=== PATIENT | female | born 1945 | race Asian ===

== ENCOUNTER 2017-01-26 09:38 | Outpatient (CLI) | payer OTHER ==
[~2017-01-26 09:38] MED LIST: BAYER CHEWABLE81 MG PO; DIAZ5TAB20 PO; EQ OMEPRAZOLE20 MG PO; FORTAMET500 MG PO; GABA300C2 PO; GARLIC OIL1000 M1 PO; HYDR25TA60 PO; IBUP-97 PO; LEVO0.0218 PO; MICARDIS40 MG PO; OMEPRAZOLE20 M1 PO; OXYC10TA3 PO
[2017-01-26 10:40] LABS: PLATELET COUNT 223 K/uL (152-353)
[2017-01-26 11:10] LABS: POTASSIUM 3.6 mmol/L (3.6-5.2)
== END 2017-01-26 10:38 | disposition home or self-care (01) ==
LOC: LABW 09:38
PROVIDERS: Family Medicine
DX: I12.9 Hypertensive chronic kidney disease with stage 1 through stage 4 chronic kidney disease, or unspecified chronic kidney disease (principal); M54.2 Cervicalgia; N18.3 Chronic kidney disease, stage 3 (moderate); E11.9 Type 2 diabetes mellitus without complications; E03.8 Other specified hypothyroidism; K21.9 Gastro-esophageal reflux disease without esophagitis
CPT/HCPCS: 36415; 80053; 80061; 81000; 82043; 82306; 82570; 83036; 83735; 84439; 84443; 84550; 85027

== ENCOUNTER 2017-06-22 13:25 | Outpatient (CLI) | payer OTHER ==
[2017-06-22 14:24] LABS: POTASSIUM 3.8 mmol/L (3.6-5.2)
[2017-06-22 14:47] LABS: PLATELET COUNT 249 K/uL (152-353)
== END 2017-06-22 20:07 | disposition home or self-care (01) ==
LOC: LAB 13:25
PROVIDERS: Family Medicine
DX: I10 Essential (primary) hypertension (principal); R23.8 Other skin changes
CPT/HCPCS: 80053; 82306; 83735; 84439; 84443; 85027

== ENCOUNTER 2017-08-06 08:42 | Outpatient (CLI) | payer OTHER | END 2017-08-06 19:01 | disposition home or self-care (01) | LOC: MAMMO 08:42 | DX: Z12.31 Encounter for screening mammogram for malignant neoplasm of breast (principal) ==

== ENCOUNTER 2017-09-07 11:00 | Emergency (ER) | payer OTHER ==
[~2017-09-07] VITALS: Ht 157.5 cm; Wt 84.4 kg
[2017-09-07 12:25] LABS: PLATELET COUNT 256 K/uL (152-353)
[2017-09-07 12:38] LABS: POTASSIUM 3.6 mmol/L (3.6-5.2)
[2017-09-07 14:48] VITALS: BP 153/71; TEMP 98
== END 2017-09-07 14:48 | disposition home or self-care (01) ==
LOC: ED 11:00
PROVIDERS: Emergency Medicine
DX: R42 Dizziness and giddiness (principal); R79.89 Other specified abnormal findings of blood chemistry; R00.1 Bradycardia, unspecified
CPT/HCPCS: 36415; 80053; 81000; 82550; 84484; 85027; 93005; 99283

== ENCOUNTER 2017-09-19 12:51 | Outpatient (CLI) | payer OTHER | END 2017-09-19 19:00 | disposition home or self-care (01) | LOC: CT 12:51 | DX: R42 Dizziness and giddiness (principal); R51 Headache; R06.02 Shortness of breath; I10 Essential (primary) hypertension ==

== ENCOUNTER 2018-05-13 10:08 | Outpatient (CLI) | payer OTHER | END 2018-05-13 19:44 | disposition home or self-care (01) | LOC: MRI 10:08 | DX: R51 Headache (principal) | CPT/HCPCS: 36415; 82565; 84520 ==

== ENCOUNTER 2018-06-14 09:36 | Outpatient (CLI) | payer OTHER ==
[2018-06-14 10:11] LABS: PLATELET COUNT 247 K/uL (152-353)
== END 2018-06-14 19:44 | disposition home or self-care (01) ==
LOC: LABW 09:36
PROVIDERS: Internal Medicine Nephrology
DX: N18.3 Chronic kidney disease, stage 3 (moderate) (principal); E11.9 Type 2 diabetes mellitus without complications; I10 Essential (primary) hypertension; E56.9 Vitamin deficiency, unspecified; E03.9 Hypothyroidism, unspecified
CPT/HCPCS: 36415; 80053; 82306; 82575; 83036; 83970; 84100; 84156; 84165; 84443; 85027; 86039

== ENCOUNTER 2018-07-05 09:11 | Outpatient (CLI) | payer OTHER | END 2018-07-05 22:41 | disposition home or self-care (01) | LOC: US 09:11 | DX: N18.3 Chronic kidney disease, stage 3 (moderate) (principal); E11.9 Type 2 diabetes mellitus without complications; I10 Essential (primary) hypertension; E56.9 Vitamin deficiency, unspecified; E03.9 Hypothyroidism, unspecified ==

== ENCOUNTER 2018-10-25 09:17 | Outpatient (CLI) | payer OTHER | END 2018-10-25 20:49 | disposition home or self-care (01) | LOC: MAMMO 09:17 | DX: Z13.820 Encounter for screening for osteoporosis (principal); Z78.0 Asymptomatic menopausal state; Z12.31 Encounter for screening mammogram for malignant neoplasm of breast ==

== ENCOUNTER 2018-12-25 09:44 | Outpatient (CLI) | payer OTHER ==
[2018-12-25 11:05] LABS: PLATELET COUNT 204 K/uL (152-353)
[2018-12-25 11:25] LABS: POTASSIUM 3.9 mmol/L (3.6-5.2)
== END 2018-12-25 23:59 | disposition home or self-care (01) ==
LOC: LABW 09:44
PROVIDERS: Family Medicine
DX: N18.3 Chronic kidney disease, stage 3 (moderate) (principal); I10 Essential (primary) hypertension; M54.5 Low back pain; E03.9 Hypothyroidism, unspecified; E11.610 Type 2 diabetes mellitus with diabetic neuropathic arthropathy
CPT/HCPCS: 36415; 80053; 80061; 81000; 82306; 83036; 83735; 84439; 84443; 84550; 85027

== ENCOUNTER 2019-01-16 09:33 | Outpatient (CLI) | payer OTHER ==
[2019-01-16 10:13] LABS: POTASSIUM 4.2 mmol/L (3.6-5.2)
[2019-01-16 10:32] LABS: PLATELET COUNT 234 K/uL (152-353)
== END 2019-01-16 19:53 | disposition home or self-care (01) ==
LOC: LABW 09:33
DX: R06.02 Shortness of breath (principal); N18.3 Chronic kidney disease, stage 3 (moderate); I10 Essential (primary) hypertension; E11.9 Type 2 diabetes mellitus without complications; E56.9 Vitamin deficiency, unspecified; E03.9 Hypothyroidism, unspecified
CPT/HCPCS: 36415; 80053; 82306; 82550; 83735; 83880; 83970; 84100; 84439; 84443; 85027

== ENCOUNTER 2019-03-03 16:13 | Outpatient (CLI) | payer OTHER | END 2019-03-03 19:44 | disposition home or self-care (01) | LOC: US 16:13 | DX: R42 Dizziness and giddiness (principal) ==

== ENCOUNTER 2019-05-28 11:18 | Outpatient (CLI) | payer OTHER ==
[2019-05-28 11:58] LABS: PLATELET COUNT 259 K/uL (152-353)
[2019-05-28 12:34] LABS: POTASSIUM 2.8 mmol/L (3.6-5.2)
== END 2019-05-28 23:46 | disposition home or self-care (01) ==
LOC: LABW 11:18
PROVIDERS: Family Medicine
DX: R10.84 Generalized abdominal pain (principal); R05 Cough
CPT/HCPCS: 36415; 80053; 81000; 85027

== ENCOUNTER 2019-06-13 09:09 | Outpatient (CLI) | payer OTHER ==
[2019-06-13 10:23] LABS: PLATELET COUNT 280 K/uL (152-353)
[2019-06-13 10:40] LABS: POTASSIUM 3.5 mmol/L (3.6-5.2); SODIUM 145 mmol/L (136-145)
== END 2019-06-13 21:39 | disposition home or self-care (01) ==
LOC: RAD 09:09
PROVIDERS: Family Medicine
DX: S39.92XA Unspecified injury of lower back, initial encounter (principal); M25.551 Pain in right hip; M25.561 Pain in right knee; M79.671 Pain in right foot; R55 Syncope and collapse; I10 Essential (primary) hypertension
CPT/HCPCS: 36415; 80053; 82550; 82553; 84439; 84443; 84484; 85027; 93005

== ENCOUNTER 2019-06-18 10:01 | Emergency (ER) | payer OTHER ==
[~2019-06-18] VITALS: Ht 152.4 cm; Wt 89.4 kg
[2019-06-18 11:30] VITALS: BP 164/65; TEMP 97.5
== END 2019-06-18 11:30 | disposition home or self-care (01) ==
LOC: ED 10:01
DX: S93.692A Other sprain of left foot, initial encounter (principal); S93.492A Sprain of other ligament of left ankle, initial encounter; W18.39XA Other fall on same level, initial encounter; Y92.89 Other specified places as the place of occurrence of the external cause
CPT/HCPCS: 96372; 99282; 99283; J1885

== ENCOUNTER 2019-07-16 10:37 | Outpatient (CLI) | payer OTHER ==
[2019-07-16 11:03] LABS: PLATELET COUNT 276 K/uL (152-353)
[2019-07-16 11:21] LABS: POTASSIUM 3.5 mmol/L (3.6-5.2)
== END 2019-07-16 21:36 | disposition home or self-care (01) ==
LOC: LABW 10:37
PROVIDERS: Internal Medicine
DX: I12.9 Hypertensive chronic kidney disease with stage 1 through stage 4 chronic kidney disease, or unspecified chronic kidney disease (principal); N18.3 Chronic kidney disease, stage 3 (moderate); E11.9 Type 2 diabetes mellitus without complications; M10.9 Gout, unspecified; E03.8 Other specified hypothyroidism; K21.9 Gastro-esophageal reflux disease without esophagitis
CPT/HCPCS: 36415; 80053; 81000; 82570; 83735; 84100; 84155; 84550; 85027

== ENCOUNTER 2019-07-22 09:00 | Outpatient (CLI) | payer OTHER | END 2019-07-22 20:15 | disposition home or self-care (01) | LOC: MRI 09:00 | DX: M54.5 Low back pain (principal); M51.37 Other intervertebral disc degeneration, lumbosacral region; M48.07 Spinal stenosis, lumbosacral region; R29.898 Other symptoms and signs involving the musculoskeletal system; M54.17 Radiculopathy, lumbosacral region ==

== ENCOUNTER 2019-09-08 09:54 | Outpatient (CLI) | payer OTHER | END 2019-09-08 20:22 | disposition home or self-care (01) | LOC: US 09:54 | DX: I12.9 Hypertensive chronic kidney disease with stage 1 through stage 4 chronic kidney disease, or unspecified chronic kidney disease (principal); N18.3 Chronic kidney disease, stage 3 (moderate); H93.13 Tinnitus, bilateral; E11.9 Type 2 diabetes mellitus without complications ==

== ENCOUNTER 2019-11-17 09:41 | Outpatient (CLI) | payer OTHER ==
[2019-11-17 10:01] LABS: PLATELET COUNT 201 K/uL (152-353)
[2019-11-17 10:12] LABS: POTASSIUM 4.5 mmol/L (3.6-5.2)
== END 2019-11-17 22:33 | disposition home or self-care (01) ==
LOC: LABW 09:41
PROVIDERS: Internal Medicine
DX: I12.9 Hypertensive chronic kidney disease with stage 1 through stage 4 chronic kidney disease, or unspecified chronic kidney disease (principal); N18.3 Chronic kidney disease, stage 3 (moderate); E11.9 Type 2 diabetes mellitus without complications; M10.9 Gout, unspecified; D63.1 Anemia in chronic kidney disease; E03.8 Other specified hypothyroidism
CPT/HCPCS: 36415; 80053; 81000; 83735; 84100; 84550; 85027

== ENCOUNTER 2019-11-19 21:00 | Emergency (ER) | payer OTHER ==
[~2019-11-19] VITALS: Ht 154.9 cm; Wt 92.1 kg
[2019-11-19 23:31] VITALS: BP 162/78; TEMP 97.6
== END 2019-11-19 23:31 | disposition home or self-care (01) ==
LOC: ED 21:00
DX: S80.811A Abrasion, right lower leg, initial encounter (principal); W45.8XXA Other foreign body or object entering through skin, initial encounter; Y92.89 Other specified places as the place of occurrence of the external cause
CPT/HCPCS: 99282

== ENCOUNTER 2019-12-13 13:49 | Emergency (ER) | payer OTHER ==
[~2019-12-13] VITALS: Ht 154.9 cm; Wt 92.1 kg
[2019-12-13 14:00] VITALS: TEMP 97.5
[2019-12-13 15:15] VITALS: BP 156/84
== END 2019-12-13 15:16 | disposition home or self-care (01) ==
LOC: ED 13:49
DX: M19.012 Primary osteoarthritis, left shoulder (principal); X50.9XXA Other and unspecified overexertion or strenuous movements or postures, initial encounter; Y92.89 Other specified places as the place of occurrence of the external cause
CPT/HCPCS: 99282

== ENCOUNTER 2019-12-16 09:47 | Outpatient (CLI) | payer OTHER | END 2019-12-16 22:20 | disposition home or self-care (01) | LOC: MAMMO 09:47 | DX: Z12.31 Encounter for screening mammogram for malignant neoplasm of breast (principal) ==

== ENCOUNTER 2020-02-23 11:53 | Outpatient (CLI) | payer OTHER ==
[2020-02-23 12:28] LABS: PLATELET COUNT 206 K/uL (152-353)
[2020-02-23 12:49] LABS: POTASSIUM 4.5 mmol/L (3.6-5.2)
== END 2020-02-23 22:57 | disposition home or self-care (01) ==
LOC: LABW 11:53
PROVIDERS: Family Medicine
DX: N95.1 Menopausal and female climacteric states (principal); E11.9 Type 2 diabetes mellitus without complications; N18.3 Chronic kidney disease, stage 3 (moderate); K21.9 Gastro-esophageal reflux disease without esophagitis; I12.9 Hypertensive chronic kidney disease with stage 1 through stage 4 chronic kidney disease, or unspecified chronic kidney disease
CPT/HCPCS: 36415; 80053; 80061; 81000; 82306; 83036; 83735; 84439; 84443; 84550; 85027

== ENCOUNTER 2020-03-15 09:01 | Outpatient (CLI) | payer OTHER ==
[2020-03-15 09:53] LABS: PLATELET COUNT 203 K/uL (152-353)
[2020-03-15 09:59] LABS: POTASSIUM 4.6 mmol/L (3.6-5.2)
== END 2020-03-15 19:25 | disposition home or self-care (01) ==
LOC: LABW 09:01
PROVIDERS: Internal Medicine
DX: I12.9 Hypertensive chronic kidney disease with stage 1 through stage 4 chronic kidney disease, or unspecified chronic kidney disease (principal); N18.3 Chronic kidney disease, stage 3 (moderate); E11.9 Type 2 diabetes mellitus without complications; M10.9 Gout, unspecified; E03.8 Other specified hypothyroidism
CPT/HCPCS: 36415; 80069; 81000; 83735; 84550; 85027

== ENCOUNTER 2020-07-15 11:35 | Outpatient (CLI) | payer OTHER ==
[2020-07-15 12:24] LABS: PLATELET COUNT 185 K/uL (152-353)
[2020-07-15 17:57] LABS: POTASSIUM 4.7 mmol/L (3.6-5.2)
== END 2020-07-15 21:50 | disposition home or self-care (01) ==
LOC: LABW 11:35
PROVIDERS: Internal Medicine
DX: I12.9 Hypertensive chronic kidney disease with stage 1 through stage 4 chronic kidney disease, or unspecified chronic kidney disease (principal); N18.3 Chronic kidney disease, stage 3 (moderate); E11.9 Type 2 diabetes mellitus without complications; M10.9 Gout, unspecified; E03.8 Other specified hypothyroidism
CPT/HCPCS: 36415; 80069; 81000; 82570; 83735; 84155; 85027

== ENCOUNTER 2020-09-14 10:22 | Outpatient (CLI) | payer OTHER ==
[2020-09-14 10:59] LABS: POTASSIUM 4.3 mmol/L (3.6-5.2)
[2020-09-14 11:42] LABS: PLATELET COUNT 198 K/uL (152-353)
== END 2020-09-14 23:32 | disposition home or self-care (01) ==
LOC: LABW 10:22
PROVIDERS: Internal Medicine
DX: I12.9 Hypertensive chronic kidney disease with stage 1 through stage 4 chronic kidney disease, or unspecified chronic kidney disease (principal); N18.4 Chronic kidney disease, stage 4 (severe); E11.9 Type 2 diabetes mellitus without complications; M10.9 Gout, unspecified; E03.8 Other specified hypothyroidism
CPT/HCPCS: 36415; 80069; 81000; 83735; 84550; 85027

== ENCOUNTER 2020-09-15 08:53 | Outpatient (CLI) | payer OTHER | END 2020-09-15 21:43 | disposition home or self-care (01) | LOC: LAB 08:53 | DX: Z20.828 Contact with and (suspected) exposure to other viral communicable diseases (principal) | CPT/HCPCS: 87635; G2023; U0003 ==

== ENCOUNTER 2020-10-18 11:43 | Outpatient (CLI) | payer OTHER | END 2020-10-18 19:46 | disposition home or self-care (01) | LOC: LABW 11:43 | PROVIDERS: ATTEND Family Medicine | DX: M06.8A Other specified rheumatoid arthritis, other specified site (principal); M54.89 Other dorsalgia; M25.561 Pain in right knee; M25.519 Pain in unspecified shoulder | CPT/HCPCS: 36415; 86038; 86200; 86430 ==

== ENCOUNTER 2020-11-15 13:38 | Outpatient (CLI) | payer OTHER | END 2020-11-15 21:12 | disposition home or self-care (01) | LOC: LAB 13:38 | PROVIDERS: ATTEND Family Medicine | DX: G89.4 Chronic pain syndrome (principal); J34.89 Other specified disorders of nose and nasal sinuses; R42 Dizziness and giddiness; R05 Cough; Z11.59 Encounter for screening for other viral diseases | CPT/HCPCS: 87635; G2023; U0003 ==

== ENCOUNTER 2020-12-07 15:36 | Outpatient (CLI) | payer OTHER | END 2020-12-07 21:38 | disposition home or self-care (01) | LOC: RAD 15:36 | PROVIDERS: ATTEND Family Medicine | DX: M25.561 Pain in right knee (principal); M79.604 Pain in right leg ==

== ENCOUNTER 2021-01-12 10:29 | Outpatient (CLI) | payer OTHER ==
[2021-01-12 11:18] LABS: PLATELET COUNT 269 K/uL (152-353)
[2021-01-12 11:56] LABS: POTASSIUM 4.7 mmol/L (3.6-5.2)
== END 2021-01-12 21:08 | disposition home or self-care (01) ==
LOC: LABW 10:29
PROVIDERS: ATTEND Internal Medicine
DX: I12.9 Hypertensive chronic kidney disease with stage 1 through stage 4 chronic kidney disease, or unspecified chronic kidney disease (principal); N18.30 Chronic kidney disease, stage 3 unspecified; E11.9 Type 2 diabetes mellitus without complications; M10.9 Gout, unspecified; E03.8 Other specified hypothyroidism; K21.9 Gastro-esophageal reflux disease without esophagitis
CPT/HCPCS: 36415; 80069; 81000; 82306; 82570; 82728; 83540; 83550; 83735; 83970; 84155; 85027

== ENCOUNTER 2021-01-13 10:57 | Outpatient (CLI) | payer OTHER | END 2021-01-13 21:51 | disposition home or self-care (01) | LOC: MAMMO 10:57 | PROVIDERS: ATTEND Pediatrics | DX: Z12.31 Encounter for screening mammogram for malignant neoplasm of breast (principal) ==

== ENCOUNTER 2021-06-06 10:18 | Outpatient (CLI) | payer OTHER ==
[2021-06-06 10:58] LABS: PLATELET COUNT 204 K/uL (152-353)
== END 2021-06-06 21:00 | disposition home or self-care (01) ==
LOC: LABW 10:18
PROVIDERS: ATTEND Internal Medicine
DX: I12.9 Hypertensive chronic kidney disease with stage 1 through stage 4 chronic kidney disease, or unspecified chronic kidney disease (principal); N18.30 Chronic kidney disease, stage 3 unspecified; E11.9 Type 2 diabetes mellitus without complications; M10.9 Gout, unspecified; D63.1 Anemia in chronic kidney disease; E03.8 Other specified hypothyroidism; K21.9 Gastro-esophageal reflux disease without esophagitis; E21.2 Other hyperparathyroidism; E56.9 Vitamin deficiency, unspecified
CPT/HCPCS: 36415; 80069; 81000; 82306; 82570; 82728; 83540; 83550; 84155; 84550; 85027

== ENCOUNTER 2021-07-29 11:49 | Outpatient (CLI) | payer OTHER | END 2021-07-29 19:19 | disposition home or self-care (01) | LOC: RAD 11:49 → EDBD 11:49 → RAD 19:19 | PROVIDERS: ATTEND Family Medicine | DX: M54.2 Cervicalgia (principal); Z20.822 Contact with and (suspected) exposure to COVID-19; M54.89 Other dorsalgia; H66.90 Otitis media, unspecified, unspecified ear | CPT/HCPCS: 87635; G2023; U0003 ==

== ENCOUNTER 2021-10-18 09:42 | Outpatient (CLI) | payer OTHER ==
[2021-10-18 10:09] LABS: PLATELET COUNT 205 K/uL (152-353)
[2021-10-18 10:31] LABS: POTASSIUM 3.7 mmol/L (3.6-5.2)
== END 2021-10-18 18:57 | disposition home or self-care (01) ==
LOC: LABW 09:42
PROVIDERS: ATTEND Internal Medicine
DX: I12.9 Hypertensive chronic kidney disease with stage 1 through stage 4 chronic kidney disease, or unspecified chronic kidney disease (principal); N18.30 Chronic kidney disease, stage 3 unspecified; E11.9 Type 2 diabetes mellitus without complications; M10.9 Gout, unspecified; D63.1 Anemia in chronic kidney disease; E03.8 Other specified hypothyroidism; K21.9 Gastro-esophageal reflux disease without esophagitis
CPT/HCPCS: 36415; 80069; 81000; 82570; 82728; 83540; 83550; 83735; 84155; 84550; 85027

== ENCOUNTER 2021-10-29 11:30 | Outpatient (CLI) | payer OTHER | END 2021-10-29 18:58 | disposition home or self-care (01) | LOC: RAD 11:30 | PROVIDERS: ATTEND Family Medicine | DX: M25.542 Pain in joints of left hand (principal); M79.642 Pain in left hand ==

== ENCOUNTER 2022-01-30 13:28 | Outpatient (CLI) | payer OTHER | END 2022-01-30 19:13 | disposition home or self-care (01) | LOC: MAMMO 13:28 | PROVIDERS: ATTEND Family Medicine | DX: Z00.00 Encounter for general adult medical examination without abnormal findings (principal); Z12.31 Encounter for screening mammogram for malignant neoplasm of breast; Z13.820 Encounter for screening for osteoporosis; N95.8 Other specified menopausal and perimenopausal disorders ==

== ENCOUNTER 2022-02-01 11:49 | Outpatient (CLI) | payer OTHER ==
[2022-02-01 13:40] LABS: POTASSIUM 4.3 mmol/L (3.6-5.2)
== END 2022-02-01 18:53 | disposition home or self-care (01) ==
LOC: LABW 11:49
PROVIDERS: ATTEND Family Medicine
DX: M79.604 Pain in right leg (principal); R60.0 Localized edema; K21.9 Gastro-esophageal reflux disease without esophagitis; E03.8 Other specified hypothyroidism
CPT/HCPCS: 36415; 80053; 83735; 84439; 84443

== ENCOUNTER 2022-02-02 09:26 | Outpatient (CLI) | payer OTHER | END 2022-02-02 19:58 | disposition home or self-care (01) | LOC: US 09:26 | PROVIDERS: ATTEND Family Medicine | DX: R60.0 Localized edema (principal); M79.604 Pain in right leg ==

== ENCOUNTER 2022-02-13 14:27 | Outpatient (CLI) | payer OTHER ==
[2022-02-13 14:48] LABS: PLATELET COUNT 215 K/uL (152-353)
[2022-02-13 15:00] LABS: POTASSIUM 4.1 mmol/L (3.6-5.2)
== END 2022-02-13 19:25 | disposition home or self-care (01) ==
LOC: LABW 14:27
PROVIDERS: ATTEND Internal Medicine
DX: I12.9 Hypertensive chronic kidney disease with stage 1 through stage 4 chronic kidney disease, or unspecified chronic kidney disease (principal); N18.30 Chronic kidney disease, stage 3 unspecified; E11.9 Type 2 diabetes mellitus without complications; M10.9 Gout, unspecified; D63.1 Anemia in chronic kidney disease; E03.8 Other specified hypothyroidism; K21.9 Gastro-esophageal reflux disease without esophagitis
CPT/HCPCS: 36415; 80069; 81000; 83735; 84550; 85027

== ENCOUNTER 2022-04-27 12:22 | Outpatient (CLI) | payer OTHER | END 2022-04-27 19:17 | disposition home or self-care (01) | LOC: LAB 12:22 | PROVIDERS: ATTEND Family Medicine | DX: Z20.822 Contact with and (suspected) exposure to COVID-19 (principal) | CPT/HCPCS: 87635; G2023; U0003 ==

== ENCOUNTER 2022-05-10 12:30 | Outpatient (CLI) | payer OTHER | END 2022-05-10 19:44 | disposition home or self-care (01) | LOC: RAD 12:30 | PROVIDERS: ATTEND Nurse Practitioner Family | DX: M05.79 Rheumatoid arthritis with rheumatoid factor of multiple sites without organ or systems involvement (principal); M06.4 Inflammatory polyarthropathy; M10.09 Idiopathic gout, multiple sites; N18.9 Chronic kidney disease, unspecified ==

== ENCOUNTER 2022-05-15 13:27 | Outpatient (CLI) | payer OTHER ==
[2022-05-15 13:57] LABS: PLATELET COUNT 178 K/uL (152-353)
== END 2022-05-15 18:53 | disposition home or self-care (01) ==
LOC: LABW 13:27
PROVIDERS: ATTEND Internal Medicine
DX: I12.9 Hypertensive chronic kidney disease with stage 1 through stage 4 chronic kidney disease, or unspecified chronic kidney disease (principal); N18.30 Chronic kidney disease, stage 3 unspecified; E11.9 Type 2 diabetes mellitus without complications; M10.9 Gout, unspecified; E03.8 Other specified hypothyroidism; K21.9 Gastro-esophageal reflux disease without esophagitis
CPT/HCPCS: 36415; 80069; 81002; 82570; 83735; 84156; 84550; 85027

== ENCOUNTER 2022-05-26 09:39 | Outpatient (CLI) | payer OTHER | END 2022-05-26 20:51 | disposition home or self-care (01) | LOC: LABW 09:39 | PROVIDERS: ATTEND Family Medicine | DX: E11.9 Type 2 diabetes mellitus without complications (principal); I49.9 Cardiac arrhythmia, unspecified | CPT/HCPCS: 36415; 82550; 83036; 84484; 93005 ==

== ENCOUNTER 2022-08-31 12:58 | Outpatient (CLI) | payer OTHER | END 2022-08-31 19:16 | disposition home or self-care (01) | LOC: MRI 12:58 | PROVIDERS: ATTEND Physician Assistant | DX: M54.59 Other low back pain (principal) ==

== ENCOUNTER 2022-09-05 12:12 | Outpatient (CLI) | payer OTHER | END 2022-09-05 18:57 | disposition home or self-care (01) | LOC: RAD 12:12 | PROVIDERS: ATTEND Family Medicine | DX: M25.511 Pain in right shoulder (principal) ==

== ENCOUNTER 2022-09-07 15:54 | Outpatient (CLI) | payer OTHER ==
[2022-09-07 16:25] LABS: PLATELET COUNT 251 K/uL (152-353)
[2022-09-07 17:17] LABS: POTASSIUM 4.6 mmol/L (3.6-5.2)
== END 2022-09-07 23:14 | disposition home or self-care (01) ==
LOC: LABW 15:54
PROVIDERS: ATTEND Internal Medicine
DX: I12.9 Hypertensive chronic kidney disease with stage 1 through stage 4 chronic kidney disease, or unspecified chronic kidney disease (principal); N18.30 Chronic kidney disease, stage 3 unspecified; E11.9 Type 2 diabetes mellitus without complications; M10.9 Gout, unspecified; E03.8 Other specified hypothyroidism
CPT/HCPCS: 36415; 80069; 83735; 84550; 85027

== ENCOUNTER 2022-09-08 11:38 | Outpatient (CLI) | payer OTHER | END 2022-09-08 19:31 | disposition home or self-care (01) | LOC: LAB 11:38 | PROVIDERS: ATTEND Internal Medicine | DX: N18.30 Chronic kidney disease, stage 3 unspecified (principal); I10 Essential (primary) hypertension; M10.9 Gout, unspecified; E03.9 Hypothyroidism, unspecified | CPT/HCPCS: 81002 ==

== ENCOUNTER 2022-10-10 11:20 | Outpatient (CLI) | payer OTHER ==
[2022-10-10 11:50] LABS: PLATELET COUNT 253 K/uL (152-353)
[2022-10-10 12:37] LABS: POTASSIUM 2.9 mmol/L (3.6-5.2)
== END 2022-10-10 20:59 | disposition home or self-care (01) ==
LOC: LABW 11:20
PROVIDERS: ATTEND Internal Medicine
DX: I12.9 Hypertensive chronic kidney disease with stage 1 through stage 4 chronic kidney disease, or unspecified chronic kidney disease (principal); N18.30 Chronic kidney disease, stage 3 unspecified; E11.9 Type 2 diabetes mellitus without complications; M10.9 Gout, unspecified; E21.2 Other hyperparathyroidism; E55.9 Vitamin D deficiency, unspecified; E03.8 Other specified hypothyroidism
CPT/HCPCS: 36415; 80069; 81002; 82306; 82570; 82728; 83540; 83550; 83735; 83970; 84156; 84550; 85027

== ENCOUNTER 2022-12-21 09:16 | Outpatient (CLI) | payer OTHER ==
[2022-12-21 10:28] LABS: PLATELET COUNT 265 K/uL (152-353)
[2022-12-21 10:50] LABS: POTASSIUM 4.4 mmol/L (3.6-5.2)
== END 2022-12-21 19:24 | disposition home or self-care (01) ==
LOC: LABW 09:16
PROVIDERS: ATTEND Internal Medicine
DX: I10 Essential (primary) hypertension (principal); E11.9 Type 2 diabetes mellitus without complications; M10.9 Gout, unspecified; E03.8 Other specified hypothyroidism; R82.998 Other abnormal findings in urine
CPT/HCPCS: 36415; 80069; 81000; 83735; 84550; 85027; 87088

== ENCOUNTER 2023-02-09 10:51 | Outpatient (CLI) | payer OTHER | END 2023-02-09 20:17 | disposition home or self-care (01) | LOC: MAMMO 10:51 | PROVIDERS: ATTEND Family Medicine | DX: Z12.31 Encounter for screening mammogram for malignant neoplasm of breast (principal) ==

== ENCOUNTER 2023-03-06 13:22 | Outpatient (CLI) | payer OTHER | END 2023-03-06 19:01 | disposition home or self-care (01) | LOC: RAD 13:22 | PROVIDERS: ATTEND Family Medicine | DX: R05.9 Cough, unspecified (principal); R10.9 Unspecified abdominal pain ==

== ENCOUNTER 2023-03-17 12:21 | Outpatient (CLI) | payer OTHER ==
[2023-03-17 14:00] LABS: PLATELET COUNT 282 K/uL (152-353)
[2023-03-17 15:07] LABS: POTASSIUM 4.7 mmol/L (3.6-5.2)
== END 2023-03-17 18:54 | disposition home or self-care (01) ==
LOC: LABW 12:21
PROVIDERS: ATTEND Internal Medicine
DX: I12.9 Hypertensive chronic kidney disease with stage 1 through stage 4 chronic kidney disease, or unspecified chronic kidney disease (principal); N18.4 Chronic kidney disease, stage 4 (severe); E11.9 Type 2 diabetes mellitus without complications; M10.9 Gout, unspecified; D63.1 Anemia in chronic kidney disease; E21.2 Other hyperparathyroidism; E56.9 Vitamin deficiency, unspecified; E03.8 Other specified hypothyroidism
CPT/HCPCS: 36415; 80069; 81002; 82306; 82728; 83540; 83970; 84550; 85027

== ENCOUNTER 2023-03-19 13:51 | Emergency (ER) | payer OTHER ==
[~2023-03-19] VITALS: Ht 154.9 cm; Wt 56.7 kg
[2023-03-19 14:34] VITALS: BP 79/38; TEMP 98.6
[2023-03-19 14:45] LABS: PLATELET COUNT 267 K/uL (152-353)
[2023-03-19 14:59] LABS: POTASSIUM 4.7 mmol/L (3.6-5.2)
== END 2023-03-19 18:48 | disposition short-term general hospital (02) ==
LOC: ED 13:51
PROVIDERS: Emergency Medicine Emergency Medical Services
DX: R77.8 Other specified abnormalities of plasma proteins (principal); R11.10 Vomiting, unspecified; E86.0 Dehydration
CPT/HCPCS: 36415; 80053; 81002; 82150; 83690; 83735; 84484; 85027; 93005; 96360; 96361; 99284

== ENCOUNTER 2023-04-13 11:54 | Outpatient (CLI) | payer OTHER | END 2023-04-13 19:01 | disposition home or self-care (01) | LOC: RAD 11:54 | PROVIDERS: ATTEND Nurse Practitioner Family | DX: M05.79 Rheumatoid arthritis with rheumatoid factor of multiple sites without organ or systems involvement (principal); M10.09 Idiopathic gout, multiple sites; M17.0 Bilateral primary osteoarthritis of knee; M54.51 Vertebrogenic low back pain; R76.0 Raised antibody titer ==

== ENCOUNTER 2023-06-29 15:11 | Outpatient (CLI) | payer OTHER ==
[2023-06-29 16:06] LABS: PLATELET COUNT 225 K/uL (152-353)
[2023-06-29 16:52] LABS: POTASSIUM 4.5 mmol/L (3.6-5.2)
== END 2023-06-29 20:28 | disposition home or self-care (01) ==
LOC: LABW 15:11
PROVIDERS: ATTEND Internal Medicine
DX: I10 Essential (primary) hypertension (principal); E11.9 Type 2 diabetes mellitus without complications; M10.9 Gout, unspecified; E03.8 Other specified hypothyroidism; E55.9 Vitamin D deficiency, unspecified
CPT/HCPCS: 36415; 80069; 81000; 82306; 82728; 83540; 83550; 83970; 84550; 85027

== ENCOUNTER 2023-07-20 14:12 | Outpatient (CLI) | payer OTHER | END 2023-07-20 19:11 | disposition home or self-care (01) | LOC: US 14:12 | PROVIDERS: ATTEND Family Medicine | DX: M79.604 Pain in right leg (principal); R60.0 Localized edema ==

== ENCOUNTER 2023-08-15 14:12 | Outpatient (CLI) | payer BC | END 2023-08-15 19:29 | disposition home or self-care (01) | LOC: RAD 14:12 | PROVIDERS: ATTEND Nurse Practitioner Family | DX: M05.79 Rheumatoid arthritis with rheumatoid factor of multiple sites without organ or systems involvement (principal); M10.09 Idiopathic gout, multiple sites; M47.896 Other spondylosis, lumbar region; M51.36 Other intervertebral disc degeneration, lumbar region; M54.51 Vertebrogenic low back pain ==